=== PATIENT | female | born 1955 | race Caucasian/White ===

== ENCOUNTER 2020-10-14 14:42 | Outpatient (CLI) | payer SELFPAY ==
--- NOTE | 2020-10-14 14:52 | USCV_ITS ---
Sylvia Coombs Age: 65 Gender: F : 1955 Exam Date: 10/14/2020 15:03 Ordering Phys: Mike Toscano MD Technologist: LUCIA Exam Location: [facility] – [place] Indication: left leg swelling HISTORY: Lower extremity swelling. PROCEDURES: Venous duplex imaging was performed in only the left lower extremity. The following venous structures were evaluated: common femoral vein, profunda vein, proximal portion of the greater saphenous vein, superficial femoral vein, and the popliteal vein. In addition, the posterior tibial and peroneal trunk were evaluated. Serial compression, augmentation maneuvers, and spectral Doppler flow evaluation were performed. FINDINGS: Normal 2-D Doppler and augmentation and compressibility throughout the lower extremity venous structures. Additional imaging through the proximal calf veins also reveals no thrombus. Limited evaluation of the greater saphenous vein is patent with no thrombus. CONCLUSIONS No DVT left lower extremity. Dr. Mary Zuñiga DO (Electronically Signed) Final Date: 14 October 2020 15:47 S
== END 2020-10-14 14:43 | disposition home or self-care (01) ==
LOC: RAD 14:50
PROVIDERS: PCP Family Medicine; Visit Provider Family Medicine
DX: M79.605 Pain in left leg (principal); M79.89 Other specified soft tissue disorders
CPT/HCPCS: 93971

== ENCOUNTER 2021-05-08 08:14 | Outpatient (CLI) | payer OTHER, SELFPAY ==
[2021-05-08 08:18] VITALS: BP 129/76; PULSE 58; RESP 16; TEMP 36.6; O2SAT 97; BMI 27.1
[2021-05-08 09:15] VITALS: BP 118/68; PULSE 58; RESP 16; TEMP 36.6; O2SAT 94
[2021-05-08 10:15] VITALS: BP 124/68; PULSE 56; RESP 16; TEMP 36.5; O2SAT 94
== END 2021-05-08 08:15 | disposition home or self-care (01) ==
LOC: OPS 08:18
PROVIDERS: PCP Family Medicine; Visit Provider Family Medicine
DX: U07.1 COVID-19 (principal)
CPT/HCPCS: 96365

== ENCOUNTER → 2022-04-30 13:52 | Outpatient (BNVA) | payer BC, SELFPAY | PROVIDERS: PCP Family Medicine; Visit Provider Family Medicine | DX: E11.9 Type 2 diabetes mellitus without complications (principal) | CPT/HCPCS: 83036 ==

== ENCOUNTER → 2023-01-23 08:37 | Outpatient (BNVA) | payer BC, SELFPAY | PROVIDERS: PCP Nurse Practitioner; Visit Provider Nurse Practitioner | DX: M25.50 Pain in unspecified joint (principal); E11.9 Type 2 diabetes mellitus without complications; M17.11 Unilateral primary osteoarthritis, right knee | CPT/HCPCS: 73562; 73610; 82306; 82607 ==

== ENCOUNTER 2023-02-11 06:00 | Outpatient (RCR) | payer BC, SELFPAY | END 2023-02-19 23:59 | disposition home or self-care (01) | LOC: APT 06:00 | PROVIDERS: PCP Nurse Practitioner; Visit Provider Nurse Practitioner | DX: M25.561 Pain in right knee (principal) | CPT/HCPCS: 97110; 97161; 97530 ==

== ENCOUNTER 2023-02-20 06:00 | Outpatient (RCR) | payer BC, SELFPAY | END 2023-03-21 23:59 | disposition home or self-care (01) | LOC: APT 06:00 | PROVIDERS: PCP Nurse Practitioner; Visit Provider Nurse Practitioner | DX: M25.561 Pain in right knee (principal) | CPT/HCPCS: 97110; 97112; 97140; 97530 ==

== ENCOUNTER 2023-03-22 06:00 | Outpatient (RCR) | payer BC, SELFPAY | END 2023-04-21 23:59 | disposition home or self-care (01) | LOC: APT 06:00 | PROVIDERS: PCP Nurse Practitioner; Visit Provider Nurse Practitioner | DX: M25.561 Pain in right knee (principal) | CPT/HCPCS: 97110; 97530 ==

== ENCOUNTER 2023-04-22 06:00 | Outpatient (RCR) | payer BC, SELFPAY | END 2023-05-22 23:59 | disposition home or self-care (01) | LOC: APT 06:00 | PROVIDERS: PCP Nurse Practitioner; Visit Provider Nurse Practitioner | DX: M25.561 Pain in right knee (principal) | CPT/HCPCS: 97110; 97530 ==

== ENCOUNTER → 2024-05-11 10:24 | Outpatient (BNVA) | payer OTHER, SELFPAY | PROVIDERS: PCP Nurse Practitioner; Visit Provider Nurse Practitioner | DX: L03.116 Cellulitis of left lower limb (principal) | CPT/HCPCS: 73590; 85025 ==

== ENCOUNTER → 2025-04-02 10:46 | Outpatient (BNVA) | payer OTHER, SELFPAY | PROVIDERS: PCP Nurse Practitioner; Visit Provider Family Medicine | DX: N39.0 Urinary tract infection, site not specified (principal) | CPT/HCPCS: 81000 ==